=== PATIENT | female | born 2000 | race American Indian/Alaskan Native ===

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

== ENCOUNTER → 2018-01-06 21:52 | Outpatient (CLI) | payer MEDICAID ==
[~2018-01-06 21:52] MED LIST: D5LR 1,000 ML IV SCH
[2018-01-06 22:05] VITALS: BP 129/82
[2018-01-07 00:20] LABS: Amphetamine Screen,Urine PRESUMPTIVE NEGATIVE; Benzodiazepines Screen,Urine PRESUMPTIVE NEGATIVE; Cannabinoid Screen,Urine PRESUMPTIVE NEGATIVE; Cocaine Screen,Urine PRESUMPTIVE NEGATIVE; Methadone Screen,Urine PRESUMPTIVE NEGATIVE; Opiate Screen,Urine PRESUMPTIVE NEGATIVE
== END | disposition home or self-care (01) ==
LOC: TRG 21:52
PROVIDERS: ATTEND Obstetrics & Gynecology
DX: O47.1 False labor at or after 37 completed weeks of gestation (principal); Z3A.39 39 weeks gestation of pregnancy; Z79.899 Other long term (current) drug therapy
CPT/HCPCS: 59025; 80307; J7121

== ENCOUNTER 2018-01-18 10:05 | Inpatient (IN) | payer MEDICAID ==
[2018-01-18] MEDS ORDERED: LACTATED RINGERS 1,000 ML ONE (11:56)
[2018-01-18] MEDS: LACTATED RINGERS 1,000 ML IV SCH ×2 (12:00→17:54)
[2018-01-18] MEDS ORDERED: BRETHINE IVP PRN (12:51)
[2018-01-18] MEDS ORDERED: PHENERGAN PO PRN (12:51)
[2018-01-18] MEDS ORDERED: SUBLIMAZE IV PRN ×2 (12:51→18:06)
[2018-01-18] MEDS ORDERED: MINERAL OIL PO PRN (12:51)
[2018-01-18] MEDS ORDERED: NARCAN 0.4 MG/1 ML IV PRN (12:51)
[2018-01-18] MEDS ORDERED: STADOL IV PRN (12:51)
[2018-01-18] MEDS ORDERED: ePHEDrine SULFATE IV PRN ×2 (12:51→20:15)
[2018-01-18] MEDS ORDERED: ZOFRAN IV PRN ×2 (12:51→20:15)
[2018-01-18] MEDS ORDERED: XYLOCAINE 2% INFILTRATI ONE (12:51)
[2018-01-18] MEDS ORDERED: BRETHINE SUB-Q PRN (12:51)
--- NOTE | 2018-01-18 12:59 | History and Physical Report ---
History of Present Illness Date of examination: 01/18/18 Date of admission: 01/18/18 11:29 Chief complaint: contractions and pain via EMS History of present illness: 17 yo at 41 weeks came in via EMS for contractions noted to be 1 cm. Cat 2 strip and postdates so I decided to keep patient as she has IOL on Sunday. Her OB history includes late care at 14 weeks. Sickle cell trait neg. 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 denies: smoking, alcohol abuse, prescription drug abuse - Obstetrical History Expected Date of Delivery: 01/11/18 Actual Gestation: 41 Week(s) 0 Day(s) : 1 Para: 0 Hx # Term Pregnancies: 0 Number of Pregnancies: 0 Spontaneous Abortions: 1 Induced : 0 Number of Living Children: 0 Medications and Allergies Allergies Allergy/AdvReac Type Severity Reaction Status Date / Time mycin Allergy Mild Rash Uncoded 12/28/17 12:25 Home Medications Medication Instructions Recorded Confirmed Last Taken Type Pnv,Calcium 72/Iron/Folic Acid 1 tab PO DAILY 12/08/17 12/28/17 12/28/17 09:00 History [Pnv Plus Multivit Tab] 1 Active Meds: Active Medications Butorphanol Tartrate (Stadol) 2 mg IV Q2H PRN PRN Reason: Pain , Severe (7-10) Dinoprostone (Cervidil) 10 mg VG ONCE ONE Stop: 01/18/18 12:52 Ephedrine Sulfate (Ephedrine Sulfate) 10 mg IV Q2M PRN PRN Reason: Hypotension Fentanyl (Sublimaze) 100 mcg IV Q2H PRN PRN Reason: Labor Pain Lactated Ringer's (Lactated Ringers) 1,000 mls @ 125 mls/hr IV DIRECT BRISEYDA Oxytocin/Sodium Chloride (Pitocin/Ns 20 Unit/1000ml Drip) 20 units in 1,000 mls @ 125 mls/hr IV DIRECT BRISEYDA Oxytocin/Sodium Chloride (Pitocin/Ns 30 Unit/500ml) 30 units in 500 mls @ 1 mls /hr IV TITR BRISEYDA; 1 MILLIUNITS/MIN PRN Reason: Protocol Lidocaine (Xylocaine 2%) 20 ml INFILTRATI ONCE ONE Stop: 01/18/18 12:52 Mineral Oil (Mineral Oil) 30 ml PO QHS PRN PRN Reason: Constipation Naloxone HCl (Narcan 0.4 Mg/1 Ml) 0.1 mg IV Q2MIN PRN PRN Reason: Res Rate </= 8 or 02 SAT < 92% Ondansetron HCl (Zofran) 4 mg IV Q8H PRN PRN Reason: Nausea And Vomiting Promethazine HCl (Phenergan) 25 mg PO Q6H PRN PRN Reason: Nausea And Vomiting Terbutaline Sulfate (Brethine) 0.25 mg SUB-Q ONCE PRN PRN Reason: Hyperstimulation/Hypertonicity Terbutaline Sulfate (Brethine) 0.25 mg IVP ONCE PRN PRN Reason: Hyperstimulation/Hypertonicity Review of Systems All systems: negative Genitourinary: contractions - Vital Signs Vital signs: Vital Signs Temp Pulse Resp BP 97.9 F 82 16 110/60 01/18/18 10:49 01/18/18 10:49 01/18/18 10:49 01/18/18 10:49 Temp Pulse Resp BP Pulse Ox 98.0 F 59 L 16 134/62 01/18/18 12:26 01/18/18 12:31 01/18/18 12:26 01/18/18 12:31 - Physical Exam Breasts: Positive: normal Cardiovascular: Regular rate, Normal S1 Lungs: Positive: Clear to auscultation, Normal air movement Abdomen: Positive: normal appearance, soft, normal bowel sounds. Negative: distention, tenderness, guarding Genitourinary (Female): Positive: normal external genitalia, normal perenium Vulva: both: normal Vagina: Positive: normal moisture Uterus: Positive: normal size, normal contour Anus/Rectum: Positive: normal perianal skin Extremities: Positive: normal Deep Tendon Reflex Grade: Normal +2 - Obstetrical FHR: category 1 Cervical Dilatation: 1 Uterine Contraction Pattern: Irregular Uterine Tone Measurement Phase: Contraction Uterine Contraction Intensity: Mild Results All other labs normal. Assessment and Plan A/P IUP 41 weeks Post dates ( previously scheduled this coming Sunday) IOL today IVF, labs Expect vaginal delivery
[2018-01-18] MEDS ORDERED: CERVIDIL VG ONE (13:00)
[2018-01-18] MEDS ORDERED: PITOCin/NS 20 UNIT/1000ML DRIP 20 UNITS/1,000 ML BAG IV SCH (13:00)
[2018-01-18 13:23] LABS: Hematocrit 30.8 % (30.3-42.9); Hemoglobin 10.8 gm/dl (10.1-14.3); Mean Corpuscular HGB Conc 35 % (30-34); Mean Corpuscular Hemoglobin 29 pg (28-32); Mean Corpuscular Volume 83 fl (79-97); Platelet Count 177 K/mm3 (140-440); Red Cell Distribution Width 15.2 % (13.2-15.2)
[2018-01-18] MEDS: PITOCin/NS 30 UNIT/500ML 30 UNITS/500 ML BAG IV SCH ×2 (16:59→17:48)
[2018-01-18] MEDS ORDERED: NARCAN 2 MG/2 ML IV PRN (20:15)
--- NOTE | 2018-01-18 20:16 | Anesthesia Consultation ---
Anesthesia Consult and Med Hx Date of service: 01/18/18 - Airway Anesthetic Teeth Evaluation: Good ROM Head & Neck: Adequate Mental/Hyoid Distance: Adequate Mallampati Class: Class II Intubation Access Assessment: Probably Good - Pulmonary Exam CTA: Yes - Cardiac Exam Cardiac Exam: RRR - Pre-Operative Health Status ASA Pre-Surgery Classification: ASA2 Proposed Anesthetic Plan: Epidural - Pulmonary Hx Asthma: No COPD: No Hx Pneumonia: No - Cardiovascular System Hx Hypertension: No - Central Nervous System Hx Seizures: No Hx Psychiatric Problems: No - Endocrine Hx Renal Disease: No Hx End Stage Renal Disease: No Hx Hypothyroidism: No Hx Hyperthyroidism: No - Hematic Hx Anemia: No Hx Sickle Cell Disease: No - Other Systems Hx Alcohol Use: No
[2018-01-18] MEDS ORDERED: fentaNYL-BUPIV 2 MCG/ML-0.125% 200 MCG/100 ML BAG EPIDURAL SCH (21:00)
[2018-01-19] MEDS ORDERED: CYTOTEC ONE (03:03)
--- NOTE | 2018-01-19 03:14 | Procedure Note ---
OB Delivery Note - Delivery Date of Delivery: 01/19/18 Surgeon: NEVILLE CASE Estimated blood loss: other (400ml) - Vaginal Delivery presentation: vertex Delivery position: OA Intrapartum events: none Delivery induction: AROM Delivery augmentation: pitocin Delivery monitor: external FHT, external uterine, internal FHT, internal uterine Route of delivery: Delivery placenta: spontaneous Delivery cord: 3 umbilical vessels Episiotomy: none Delivery laceration: none Anesthesia: epidural Delivery comments: Patient progressed to C/c/+1 and pushed to deliver a liveborn female infant with apgars of 8/9. After delivery of the head, the shoulders delivered and the was bulb suctioned on the perineum. The cord was clamped and cut and was placed on the patient's abdomen. The placenta delivered spontaneously intact with 3VC. The patient experienced uterine atony and was given fundal massage along with placement of 800mcg of cytotec. No lacerations were noted. Weight 8lbs 5oz. EBL 400ml. - Infant A at 1 minute: 8 at 5 minutes: 9 Gender: Female (weight 8lbs 5oz)
[2018-01-19] MEDS ORDERED: PHENERGAN PR PRN (03:15)
[2018-01-19] MEDS ORDERED: DULCOLAX PR PRN (03:15)
[2018-01-19] MEDS ORDERED: NORCO 5/325 PO PRN (03:15)
[2018-01-19] MEDS ORDERED: TUCKS PAD TP PRN (03:15)
[2018-01-19] MEDS ORDERED: LANSINOH TP PRN (03:15)
[2018-01-19] MEDS ORDERED: BENADRYL PO PRN (03:15)
[2018-01-19] MEDS ORDERED: MILK OF MAGNESIA PO PRN (03:15)
[2018-01-19] MEDS ORDERED: PHENERGAN PO PRN (03:15)
[2018-01-19] MEDS ORDERED: ZOFRAN IV PRN (03:15)
[2018-01-19] MEDS ORDERED: TYLENOL PO PRN (03:15)
[2018-01-19] MEDS ORDERED: SODIUM CHLORIDE FLUSH SYRINGE 10 ML IV NR (04:00)
[2018-01-19] MEDS ORDERED: CYTOTEC PR ONE (04:27)
[2018-01-19] MEDS: MOTRIN PO SCH ×3 (06:30→17:58)
[2018-01-19 15:59] LABS: Hemoglobin 9.7 gm/dl (10.1-14.3)
[2018-01-20] MEDS: MOTRIN PO SCH ×4 (00:10→17:55)
--- NOTE | 2018-01-20 12:51 | Progress Note ---
Assessment and Plan - Patient Problems (1) Post-term Current Visit: Yes Status: Acute Plan to address problem: Patient doing well Discharge home Subjective - Subjective Date of service: 01/20/18 Interval history: The patient is experiencing moderate cramping with breast-feeding. She states her lochia is decreasing. She is tolerating a regular diet. Patient reports: appetite normal, voiding normally, pain well controlled : doing well Objective - Vital Signs Latest vital signs: Vital Signs Temp Pulse Resp BP Pulse Ox 01/20/18 10:06 97.6 F 70 18 119/76 100 01/20/18 00:10 20 01/20/18 00:00 98.1 F 85 18 131/71 01/19/18 18:14 97.9 F 60 18 126/72 98 Intake and Output 01/19/18 01/20/18 01/20/18 22:59 06:59 14:59 Intake Total 120 720 120 Output Total 400 Balance -280 720 120 Intake: Oral 120 120 Intake, Free Water 720 Output: Urine 400 Void 400 Other: Total, Intake Amount 120 120 Total, Output Amount 400 # Voids Void 1 3 1 - Exam Uterus: Present: normal, firm - Labs Labs: Abnormal lab results 01/19/18 Range/Units 15:36 Hgb 9.7 L (10.1-14.3) gm/dl Hct 28.0 L (30.3-42.9) %
--- NOTE | 2018-01-20 12:52 | Discharge Summary ---
Providers - Providers Date of Admission: 01/18/18 11:29 Date of discharge: 01/20/18 Attending physician: CARMEN ADKINS MD Primary care physician: SHAINA AMEZQUITA Hospitalization Reason for admission: induction of labor Delivery: complications: none Discharge diagnosis: IUP at term delivered baby: female Hospital course: The patient was admitted for induction of labor secondary to macrosomia suspected and postterm . The patient had a successful vaginal delivery. Her course was unremarkable. Condition at discharge: Good Disposition: DC-01 TO HOME OR SELFCARE - Discharge Diagnoses (1) Post-term Status: Acute Plan - Discharge Medications Prescriptions: HYDROcodone/APAP 5-325 [Snyder 5/325] 1 each PO Q6HR PRN #30 tablet PRN Reason: Pain Ibuprofen [Motrin] 800 mg PO Q8HR PRN #60 tablet PRN Reason: Pain - Provider Discharge Summary Activity: no sex for 6 weeks, no heavy lifting 4 weeks, no strenuous exercise Diet: routine Instructions: routine Additional instructions: [] Smoking cessation referral if applicable(refer to patient education folder for contact #) [] Refer to [facility] Booklet Call your doctor immediately for: * Fever > 100.5 * Heavy vaginal bleeding ( >1 pad per hour) * Severe persistent headache * Shortness of breath * Reddened, hot, painful area to leg or breast * Schedule visit in 4 weeks - Follow up plan
[2018-01-20 15:41] VITALS: BP 113/76
== END 2018-01-20 19:35 | disposition home or self-care (01) | DRG 774 ==
LOC: TRG 10:05 → LD 11:29 → OB 01-19 05:06
PROVIDERS: ADMIT Obstetrics & Gynecology; ATTEND Obstetrics & Gynecology
PROC: 10E0XZZ Delivery of Products of Conception, External Approach (ICD-10-PCS; principal; 2018-01-19)
PROC: 10907ZC Drainage of Amniotic Fluid, Therapeutic from Products of Conception, Via Natural or Artificial Opening (ICD-10-PCS; 2018-01-19)
PROC: 3E0R3BZ Introduction of Anesthetic Agent into Spinal Canal, Percutaneous Approach (ICD-10-PCS; 2018-01-19)
PROC: 00HU33Z Insertion of Infusion Device into Spinal Canal, Percutaneous Approach (ICD-10-PCS; 2018-01-19)
DX: O48.0 Post-term pregnancy (principal); O98.32 Other infections with a predominantly sexual mode of transmission complicating childbirth; O62.2 Other uterine inertia; O36.63X0 Maternal care for excessive fetal growth, third trimester, not applicable or unspecified; Z37.0 Single live birth; Z3A.41 41 weeks gestation of pregnancy; Z88.1 Allergy status to other antibiotic agents; A60.00 Herpesviral infection of urogenital system, unspecified
CPT/HCPCS: 36415; 59025; 85014; 85018; 85027; 86592; 86850; 86900; 86901; J2590; J3010; J7120

== ENCOUNTER 2018-03-12 05:06 | Emergency (ER) | payer MEDICAID ==
[2018-03-12] MEDS ORDERED: ZOFRAN IV ONE ×3 (05:34→07:27)
[2018-03-12] MEDS ORDERED: MORPHINE IV ONE (05:34)
[2018-03-12 06:00] LABS: Basophils % (Auto) 0.3 % (0.0-1.8); Eosinophils # (Auto) 0.1 K/mm3 (0.0-0.4); Eosinophils % (Auto) 0.6 % (0.0-4.3); Hematocrit 33.4 % (30.3-42.9); Hemoglobin 11.2 gm/dl (10.1-14.3); Lymphocytes # (Auto) 1.4 K/mm3 (1.2-5.4); Lymphocytes % (Auto) 15.3 % (13.4-35.0); Mean Corpuscular HGB Conc 33 % (30-34); Mean Corpuscular Volume 78 fl (79-97); Monocytes # (Auto) 0.4 K/mm3 (0.0-0.8); Monocytes % (Auto) 4.2 % (0.0-7.3); Platelet Count 258 K/mm3 (140-440); Red Blood Count 4.31 M/mm3 (3.65-5.03); Red Cell Distribution Width 15.1 % (13.2-15.2)
[2018-03-12 06:02] LABS: Mean Corpuscular Hemoglobin 26 pg (28-32)
[2018-03-12 06:25] LABS: Alanine Aminotransferase 77 units/L (7-56); Albumin 4.5 g/dL (3.9-5); BUN/Creatinine Ratio 24; Blood Urea Nitrogen 19 mg/dL (7-17); Calcium 9.5 mg/dL (8.4-10.2); Hemolysis Index 3
[2018-03-12] MEDS ORDERED: SUBLIMAZE IV NR (07:26)
[2018-03-12] MEDS ORDERED: NACL 0.9% 1000 ML 1,000 ML IV ONE (07:27)
--- NOTE | 2018-03-12 07:31 | Emergency Department Report ---
ED Abdominal Pain HPI - General Chief Complaint: Abdominal Pain Stated Complaint: ABD PAIN Time Seen by Provider: 03/12/18 07:23 Source: patient, EMS Mode of arrival: Stretcher Limitations: No Limitations - History of Present Illness Initial Comments: Patient is 17 years old female with no significant past medical history. She just had a normal vaginal delivery 2 months ago. Patient presented to the ER complaining of sudden onset of right upper quadrant abdominal pain around 3 AM this morning. Patient stated that pain does not radiate. Associated with nausea but no vomiting. No diarrhea. MD Complaint: abdominal pain -: Sudden Location: RUQ Radiation: none Migration to: no migration Severity scale (0 -10): 4 Quality: stabbing Consistency: constant Worsens With: nothing - Related Data Home Medications Medication Instructions Recorded Confirmed Last Taken Pnv,Calcium 72/Iron/Folic Acid 1 tab PO DAILY 12/08/17 01/19/18 12/28/17 09:00 [Pnv Plus Multivit Tab] 1 Previous Rx's Medication Instructions Recorded Last Taken Type HYDROcodone/APAP 5-325 [[place] 1 each PO Q6HR PRN #30 tablet 01/20/18 Unknown Rx 5/325] Ibuprofen [Motrin] 800 mg PO Q8HR PRN #60 tablet 01/20/18 Unknown Rx Allergies Allergy/AdvReac Type Severity Reaction Status Date / Time mycin Allergy Mild Rash Uncoded 12/28/17 12:25 ED Review of Systems ROS: Stated complaint: ABD PAIN Other details as noted in HPI Comment: All other systems reviewed and negative Constitutional: denies: chills, fever Respiratory: denies: cough, orthopnea, shortness of breath, SOB with exertion Cardiovascular: denies: chest pain, palpitations, dyspnea on exertion, orthopnea , edema Gastrointestinal: abdominal pain, nausea. denies: vomiting, diarrhea, constipation, hematemesis, melena, hematochezia Genitourinary: denies: urgency, dysuria, frequency, hematuria Musculoskeletal: denies: back pain Neurological: denies: headache, weakness, numbness, paresthesias, confusion, abnormal gait, vertigo ED Past Medical Hx - Past Medical History Previous Medical History?: No Hx Hypertension: No Hx Congestive Heart Failure: No Hx Diabetes: No Hx Deep Vein Thrombosis: No Hx Renal Disease: No Hx Sickle Cell Disease: No Hx Seizures: No Hx Asthma: No Hx COPD: No Hx HIV: No - Surgical History Past Surgical History?: No - Social History Smoking Status: Never Smoker Substance Use Type: None - Medications Home Medications: Home Medications Medication Instructions Recorded Confirmed Last Taken Type Pnv,Calcium 72/Iron/Folic Acid 1 tab PO DAILY 12/08/17 01/19/18 12/28/17 09:00 History [Pnv Plus Multivit Tab] 1 HYDROcodone/APAP 5-325 [[place] 1 each PO Q6HR PRN #30 tablet 01/20/18 Unknown Rx 5/325] Ibuprofen [Motrin] 800 mg PO Q8HR PRN #60 tablet 01/20/18 Unknown Rx ED Physical Exam - General Limitations: No Limitations General appearance: alert, in distress (secondary to pain) - Head Head exam: Present: atraumatic, normocephalic, normal inspection - Eye Eye exam: Present: normal appearance, PERRL - ENT ENT exam: Present: normal exam, normal orophraynx, mucous membranes moist - Neck Neck exam: Present: normal inspection, full ROM. Absent: tenderness, meningismus, lymphadenopathy - Respiratory Respiratory exam: Present: normal lung sounds bilaterally. Absent: respiratory distress, wheezes, rales, rhonchi - Cardiovascular Cardiovascular Exam: Present: regular rate, normal rhythm, normal heart sounds - GI/Abdominal GI/Abdominal exam: Present: soft, tenderness (right upper quadrant tenderness, positive Hirsch sign), normal bowel sounds. Absent: distended, guarding, rebound, rigid, organomegaly, mass, bruit, pulsatile mass, hernia - Extremities Exam Extremities exam: Present: normal inspection, full ROM, normal capillary refill - Back Exam Back exam: Present: normal inspection, full ROM. Absent: tenderness, CVA tenderness (R), CVA tenderness (L) - Neurological Exam Neurological exam: Present: alert, oriented X3, CN II-XII intact, normal gait - Skin Skin exam: Present: warm, intact, normal color ED Course Vital Signs 03/12/18 03/12/18 03/12/18 05:14 05:15 05:24 Temperature 98.7 F Pulse Rate 100 H 110 H 94 H Respiratory 13 12 20 Rate Blood Pressure 134/83 134/83 O2 Sat by Pulse 98 96 98 Oximetry 03/12/18 03/12/18 03/12/18 05:30 05:45 06:00 Temperature Pulse Rate 82 85 87 Respiratory 15 14 16 Rate Blood Pressure 113/72 115/86 108/72 O2 Sat by Pulse 97 96 98 Oximetry 03/12/18 03/12/18 03/12/18 06:15 06:30 06:45 Temperature Pulse Rate 76 77 81 Respiratory 15 17 20 Rate Blood Pressure 123/55 123/76 128/70 O2 Sat by Pulse 97 98 98 Oximetry 03/12/18 03/12/18 03/12/18 07:00 08:07 08:15 Temperature Pulse Rate 72 80 79 Respiratory 15 19 13 Rate Blood Pressure 109/57 116/82 116/75 O2 Sat by Pulse 98 99 Oximetry 03/12/18 03/12/18 03/12/18 08:29 08:30 08:45 Temperature Pulse Rate 61 55 L Respiratory 16 21 18 Rate Blood Pressure 116/75 110/56 112/62 O2 Sat by Pulse 97 98 Oximetry 03/12/18 03/12/18 03/12/18 09:01 09:15 09:30 Temperature Pulse Rate 53 L 54 L 53 L Respiratory 12 17 10 L Rate Blood Pressure 111/61 118/62 116/69 O2 Sat by Pulse 100 96 98 Oximetry 03/12/18 03/12/18 03/12/18 09:45 10:00 10:15 Temperature Pulse Rate 62 60 61 Respiratory 14 12 21 Rate Blood Pressure 115/65 120/74 120/72 O2 Sat by Pulse 98 100 100 Oximetry 03/12/18 10:30 Temperature Pulse Rate 67 Respiratory 10 L Rate Blood Pressure 119/75 O2 Sat by Pulse 100 Oximetry - Reevaluation(s) Reevaluation #1: 03/12/18 11:10 Patient stated that she is feeling much better. I informed mom about her ultrasound and the need to follow-up with her primary care physician and I gave her Dr. Finch to follow-up. ED Medical Decision Making - Lab Data Result diagrams: 03/12/18 05:49 03/12/18 05:49 Critical care attestation.: If time is entered above; I have spent that time in minutes in the direct care of this critically ill patient, excluding procedure time. ED Disposition Clinical Impression: Abdominal pain, Biliary colic Disposition: DC-01 TO HOME OR SELFCARE Is pt being admited?: No Condition: Stable Instructions: Biliary Colic (ED), Abdominal Pain (ED) Referrals: JUNAID FINCH MD [Staff Physician] - 3-5 Days
[2018-03-12] MEDS ORDERED: SUBLIMAZE ONE (07:33)
--- NOTE | 2018-03-12 08:20 | Ultrasound Report ---
ULTRASOUND ABDOMEN LIMITED: TECHNIQUE: Transabdominal ultrasound with color Doppler interrogation. HISTORY: right upper quadrant abdominal pain. COMPARISON: 04/09/17. FINDINGS: LIVER: Normal. BILIARY SYSTEM: Trace sludge and a few shadowing gallstones are identified which are new since the previous exam. There is no evidence for abnormal dilatation, gallbladder wall thickening or pericholecystic fluid. The CBD measures 3 mm. PANCREAS: Normal. RIGHT KIDNEY: Normal. PROXIMAL AORTA: Normal. ASCITES: None. IMPRESSION: Cholelithiasis. No secondary findings of acute cholecystitis are appreciated.
[2018-03-12 10:51] VITALS: BP 119/75
[2018-03-12] MEDS ORDERED: TORADOL IV ONE (11:10)
[2018-03-12 11:33] LABS: Bilirubin,Urine NEG (Negative); Blood,Urine LG (Negative); Color,Urine Yellow (Yellow); Protein,Urine <15 mg/dL mg/dL (Negative)
== END 2018-03-12 11:37 | disposition home or self-care (01) ==
LOC: ED 05:06
DX: K80.50 Calculus of bile duct without cholangitis or cholecystitis without obstruction (principal); Z88.1 Allergy status to other antibiotic agents
CPT/HCPCS: 36415; 76705; 80053; 81001; 84703; 85025; 96361; 96374; 96375; 96376; 99284; J2270; J2405; J3010; J7030

== ENCOUNTER 2018-07-14 12:21 | Inpatient (IN) | payer SELFPAY ==
[2018-07-14 12:57] LABS: Bilirubin,Urine NEG (Negative); Blood,Urine NEG (Negative); Color,Urine Straw (Yellow); Mucus,Urine FEW /HPF; Protein,Urine <15 mg/dL mg/dL (Negative); Urobilinogen,Urine < 2.0 mg/dL (<2.0)
[2018-07-14 13:08] LABS: HCG Qualitative,Urine Negative (Negative)
--- NOTE | 2018-07-14 13:36 | Emergency Department Report ---
ED Abdominal Pain HPI - General Chief Complaint: Abdominal Pain Stated Complaint: LOWER ADB PAIN AND BACK PAIN Time Seen by Provider: 07/14/18 13:23 Source: patient Mode of arrival: Ambulatory Limitations: No Limitations - History of Present Illness Initial Comments: This is a 18-year-old -[place] female who presents with lower abdominal pain and low back pain for 4 days. Patient states she has a history of gallstones. Patient states she is feeling nauseous with migraines with abdominal pain. Patient describes pain as similar to elinor alamo. Pain is dull and achy. Patient states when cramps he is short requiring her to get in a position. Pain is radiating to bilateral flanks. Patient's last menstrual period was 01/20/2018, A0. Patient denies taking control pills at this time. Patient states she took a test at home which was negative. She is concerned gallstones are flared. Patient denies chest pain, fever, frequency, urgency, dysuria, vaginal discharge or bleeding. MD Complaint: abdominal pain Onset/Timin -: days(s) Location: LLQ, RLQ Radiation: bilateral flank Migration to: bilateral flank Severity: severe Severity scale (0 -10): 9 Quality: cramping, sharp Consistency: intermittent Improves With: nothing Worsens With: nothing Associated Symptoms: nausea, vomiting. denies: diarrhea, fever, chills, constipation, dysuria, hematemesis, hematochezia, melena, hematuria, anorexia, syncope - Related Data LMP Date: 01/22/18 Home Medications Medication Instructions Recorded Confirmed Last Taken Pnv,Calcium 72/Iron/Folic Acid 1 tab PO DAILY 12/08/17 01/19/18 12/28/17 09:00 [Pnv Plus Multivit Tab] 1 Previous Rx's Medication Instructions Recorded Last Taken Type HYDROcodone/APAP 5-325 [[place] 1 each PO Q6HR PRN #30 tablet 01/20/18 Unknown Rx 5/325] Ibuprofen [Motrin] 800 mg PO Q8HR PRN #60 tablet 01/20/18 Unknown Rx Ondansetron [Zofran Odt] 4 mg PO Q8HR PRN #14 tab.rapdis 03/12/18 Unknown Rx traMADol [Ultram 50 MG tab] 50 mg PO Q4HR PRN #14 tablet 03/12/18 Unknown Rx Allergies Allergy/AdvReac Type Severity Reaction Status Date / Time mycin Allergy Mild Rash Uncoded 07/14/18 12:29 ED Review of Systems ROS: Stated complaint: LOWER ADB PAIN AND BACK PAIN Other details as noted in HPI Constitutional: denies: chills, fever Respiratory: denies: cough, shortness of breath, wheezing Cardiovascular: denies: chest pain, palpitations Gastrointestinal: abdominal pain, nausea, vomiting. denies: diarrhea, constipation, hematemesis, melena, hematochezia Genitourinary: denies: urgency, dysuria, frequency, discharge Musculoskeletal: back pain (bilateral flanks). denies: joint swelling, arthralgia Skin: denies: rash, lesions Neurological: headache. denies: weakness, numbness, paresthesias Psychiatric: denies: anxiety, depression ED Past Medical Hx - Past Medical History Hx Hypertension: No Hx Congestive Heart Failure: No Hx Diabetes: No Hx Deep Vein Thrombosis: No Hx Renal Disease: No Hx Sickle Cell Disease: No Hx Seizures: No Hx Asthma: No Hx COPD: No Hx HIV: No - Social History Smoking Status: Never Smoker Substance Use Type: None - Medications Home Medications: Home Medications Medication Instructions Recorded Confirmed Last Taken Type Pnv,Calcium 72/Iron/Folic Acid 1 tab PO DAILY 12/08/17 01/19/18 12/28/17 09:00 History [Pnv Plus Multivit Tab] 1 HYDROcodone/APAP 5-325 [[place] 1 each PO Q6HR PRN #30 tablet 01/20/18 Unknown Rx 5/325] Ibuprofen [Motrin] 800 mg PO Q8HR PRN #60 tablet 01/20/18 Unknown Rx Ondansetron [Zofran Odt] 4 mg PO Q8HR PRN #14 tab.rapdis 03/12/18 Unknown Rx traMADol [Ultram 50 MG tab] 50 mg PO Q4HR PRN #14 tablet 03/12/18 Unknown Rx ED Physical Exam - General Limitations: No Limitations General appearance: alert, in no apparent distress, obese - Respiratory Respiratory exam: Present: normal lung sounds bilaterally. Absent: respiratory distress - Cardiovascular Cardiovascular Exam: Present: regular rate, normal rhythm. Absent: systolic murmur, diastolic murmur, rubs, gallop - GI/Abdominal GI/Abdominal exam: Present: soft, tenderness (left lower quadrant ), normal bowel sounds. Absent: guarding, rebound, rigid, organomegaly, mass - Back Exam Back exam: Present: full ROM, CVA tenderness (R). Absent: CVA tenderness (L), muscle spasm, paraspinal tenderness, vertebral tenderness, rash noted - Neurological Exam Neurological exam: Present: alert, oriented X3, normal gait - Psychiatric Psychiatric exam: Present: normal affect, normal mood - Skin Skin exam: Present: warm, dry, intact, normal color. Absent: rash ED Course Vital Signs 07/14/18 12:29 Temperature 98.3 F Pulse Rate 90 Respiratory 18 Rate Blood Pressure 125/64 O2 Sat by Pulse 98 Oximetry ED Medical Decision Making - Lab Data Result diagrams: 07/14/18 13:59 07/14/18 13:59 - Radiology Data Radiology results: report reviewed, image reviewed FINAL REPORT EXAM: CT ABDOMEN PELVIS W CON HISTORY: LLQ tenderness TECHNIQUE: Standard enhanced CT of the abdomen and pelvis. Coronal and sagittal reconstruction was also performed. Delayed imaging through the kidneys and bladder was obtained. Contrast: 100 mL Omnipaque 300 given IV. PRIORS: None. FINDINGS: The appendix is dilated measuring 11 mm in diameter (axial image 129) and is filled with fluid. However, no wall thickening is seen and no surrounding inflammation is noted. The appendix drapes directly over the right ovary. The size the appendix can be is associated with acute appendicitis although there are no secondary findings to support that diagnosis. Within the abdomen, the liver, spleen, pancreas, gallbladder, adrenal glands, and kidneys are unremarkable. No evidence for retroperitoneal or pelvic lymphadenopathy is seen. The bowel loops have normal caliber. No soft tissue mass, fluid collection, inflammatory change, or free air is seen within the abdomen or pelvis. Within the pelvis, the bladder is unremarkable. The uterus is mildly enlarged. No evidence for mass or lymphadenopathy is seen in the pelvis. There is a 2.8 x 1.8 cm low-density cyst in the right ovary. Images through the upper abdomen include the lung bases which are expanded and clear. Bony structures show no focal abnormalities and are intact. IMPRESSION: 1. Appendix is dilated and filled with fluid without wall thickening or surrounding inflammation. By diameter measurements, this is consistent with acute appendicitis although no secondary findings are noted to support the diagnosis 2. Uterus is mildly enlarged 3. Right ovarian cyst - Medical Decision Making Patient is stable and was examined by me. Vitals stable. Obtained labs. All unremarkable. Physical findings of tenderness when left lower quadrant. Obtain CT of abdomen and pelvis. Consulted with Dr. Morse who is the attending and Dr. Kim from surgery who decided to admit. Patient will be admitted to surgery for early appendicitis. Critical care attestation.: If time is entered above; I have spent that time in minutes in the direct care of this critically ill patient, excluding procedure time. ED Disposition Clinical Impression: Nausea and vomiting in adult Appendicitis Qualifiers: Appendicitis type: acute appendicitis Acute appendicitis type: unspecified acute appendicitis type Qualified Code(s): K35.80 - Unspecified acute appendicitis Disposition: - TO HOME OR SELFCARE Is pt being admited?: Yes Does the pt Need Aspirin: No Condition: Stable Referrals: PRIMARY CARE, [Primary Care Provider] - 3-5 Days
[2018-07-14 14:11] LABS: Basophils % (Auto) 0.4 % (0.0-1.8); Eosinophils # (Auto) 0.1 K/mm3 (0.0-0.4); Eosinophils % (Auto) 1.3 % (0.0-4.3); Hematocrit 37.6 % (30.3-42.9); Hemoglobin 12.2 gm/dl (10.1-14.3); Lymphocytes # (Auto) 2.1 K/mm3 (1.2-5.4); Lymphocytes % (Auto) 29.4 % (13.4-35.0); Mean Corpuscular HGB Conc 33 % (30-34); Mean Corpuscular Volume 75 fl (79-97); Monocytes # (Auto) 0.3 K/mm3 (0.0-0.8); Monocytes % (Auto) 4.7 % (0.0-7.3); Platelet Count 294 K/mm3 (140-440); Red Blood Count 5.02 M/mm3 (3.65-5.03); Red Cell Distribution Width 16.8 % (13.2-15.2)
[2018-07-14 14:15] LABS: Mean Corpuscular Hemoglobin 24 pg (28-32)
[2018-07-14 14:24] LABS: Alanine Aminotransferase 20 units/L (7-56); Albumin 4.9 g/dL (3.9-5); BUN/Creatinine Ratio 18; Blood Urea Nitrogen 11 mg/dL (7-17); Calcium 9.7 mg/dL (8.4-10.2); Hemolysis Index 0; Lipase 37 units/L (13-60)
[2018-07-14] MEDS ORDERED: NACL 0.9% 1000 ML 1,000 ML ONE (16:25)
--- NOTE | 2018-07-14 17:40 | Cat Scan Report ---
FINAL REPORT EXAM: CT ABDOMEN PELVIS W CON HISTORY: LLQ tenderness TECHNIQUE: Standard enhanced CT of the abdomen and pelvis. Coronal and sagittal reconstruction was also performed. Delayed imaging through the kidneys and bladder was obtained. Contrast: 100 mL Omnipaque 300 given IV. PRIORS: None. FINDINGS: The appendix is dilated measuring 11 mm in diameter (axial image 129) and is filled with fluid. However, no wall thickening is seen and no surrounding inflammation is noted. The appendix drapes directly over the right ovary. The size the appendix can be is associated with acute appendicitis although there are no secondary findings to support that diagnosis. Within the abdomen, the liver, spleen, pancreas, gallbladder, adrenal glands, and kidneys are unremarkable. No evidence for retroperitoneal or pelvic lymphadenopathy is seen. The bowel loops have normal caliber. No soft tissue mass, fluid collection, inflammatory change, or free air is seen within the abdomen or pelvis. Within the pelvis, the bladder is unremarkable. The uterus is mildly enlarged. No evidence for mass or lymphadenopathy is seen in the pelvis. There is a 2.8 x 1.8 cm low-density cyst in the right ovary. Images through the upper abdomen include the lung bases which are expanded and clear. Bony structures show no focal abnormalities and are intact. IMPRESSION: 1. Appendix is dilated and filled with fluid without wall thickening or surrounding inflammation. By diameter measurements, this is consistent with acute appendicitis although no secondary findings are noted to support the diagnosis 2. Uterus is mildly enlarged 3. Right ovarian cyst
[2018-07-14] MEDS ORDERED: NACL 0.9% 1000 ML 1,000 ML IV SCH (18:00)
[2018-07-14] MEDS: ROCEPHIN/NS 1 GM/50 ML 1 GM/50 ML BAG IV SCH (18:43)
[2018-07-14] MEDS ORDERED: ZOFRAN IV PRN (20:29)
[2018-07-14] MEDS ORDERED: MORPHINE IV ONE (21:00)
[2018-07-14 21:22] LABS: HCG Qualitative,Urine Negative (Negative)
--- NOTE | 2018-07-15 00:17 | Consultation ---
HISTORY OF PRESENT ILLNESS: This patient is a 18-year-old white female who had a baby about 9 months ago for which she did well. She had no period in the last 3 months now. She developed some pain to the right lower quadrant with nausea and vomiting of about 1 week duration. She was seen in the ER and her CBC was essentially nonrevealing. Her CT scan showed evidence of ? appendicitis, the appendix about 11 mm. There is no evidence of any collection there. She has never been to hospital for any other reason. ALLERGIES: She is not allergic to any medication. PHYSICAL EXAMINATION: GENERAL: A well-preserved moderately obese white female. She is in no distress. She is little bit apprehensive. HEAD: Negative. NECK: Supple. CHEST: Essentially clear. HEART: Sound normal to me. ABDOMEN: Protuberant, soft, benign; however, moderately severe tenderness in the right lower quadrant area. EXTREMITIES: Showed no evidence of any edema. IMPRESSION AND PLAN: Right lower quadrant pain with evidence of ? widened appendix. No periappendiceal abscess or no periappendiceal fluid collection. I fixed this. It was addressed by IV fluids, n.p.o. with IV antibiotic, I would like to have Gynecology involved in the case to see if there is any gynecological problem there. I did indicate to the patient and her family that if Gynecology see her ____ to do how with the scope tomorrow under general anesthesia to take her appendix out ____ abnormal and/or may not reach a specific diagnosis although. I am leaving a message for her to see the patient. JOB# [id number]
[2018-07-15 04:46] LABS: Basophils # (Auto) 0.1 K/mm3 (0.0-0.1); Basophils % (Auto) 1.1 % (0.0-1.8); Eosinophils # (Auto) 0.1 K/mm3 (0.0-0.4); Eosinophils % (Auto) 0.7 % (0.0-4.3); Hematocrit 33.1 % (30.3-42.9); Lymphocytes # (Auto) 2.1 K/mm3 (1.2-5.4); Lymphocytes % (Auto) 29.6 % (13.4-35.0); Mean Corpuscular HGB Conc 33 % (30-34); Mean Corpuscular Volume 75 fl (79-97); Monocytes # (Auto) 0.4 K/mm3 (0.0-0.8); Platelet Count 268 K/mm3 (140-440); Red Blood Count 4.43 M/mm3 (3.65-5.03)
[2018-07-15] MEDS: ROCEPHIN/NS 1 GM/50 ML 1 GM/50 ML BAG IV SCH ×2 (04:54→05:29)
[2018-07-15] MEDS: NACL 0.9% 1000 ML 1,000 ML IV SCH ×2 (04:56→12:55)
[2018-07-15] MEDS: MORPHINE IV PRN ×3 (04:58→21:15)
[2018-07-15 05:00] LABS: Mean Corpuscular Hemoglobin 25 pg (28-32)
[2018-07-15 05:06] LABS: BUN/Creatinine Ratio 15; Blood Urea Nitrogen 9 mg/dL (7-17); Calcium 8.5 mg/dL (8.4-10.2); Hemolysis Index 1
--- NOTE | 2018-07-15 09:10 | History and Physical Report ---
History of Present Illness Date of examination: 07/15/18 Date of admission: 07/14/18 17:58 Chief complaint: abdominal pain for 3 weeks History of present illness: This is a 18 yo LMP February. patient states periods irregular on control. Patient seen in Er for 3 weeks of pain that got worse and came to Er> She is a patient of [facility] but has not been seen in over 5-6 months. Patient was worked up in ER and noticed to have a appendicitis with questionable enlarge mildly uterus with questionable ovarian cyst. She states that she has been nauseated and vomiting with abdominal pain Past History Past Medical History: no pertinent history Past Surgical History: no surgical history Family/Genetic History: none Social history: single. denies: smoking, alcohol abuse, prescription drug abuse - Obstetrical History : 1 Medications and Allergies Allergies Allergy/AdvReac Type Severity Reaction Status Date / Time mycin Allergy Mild Rash Uncoded 07/14/18 12:29 Home Medications Medication Instructions Recorded Confirmed Last Taken Type Pnv,Calcium 72/Iron/Folic Acid 1 tab PO DAILY 12/08/17 01/19/18 12/28/17 09:00 History [Pnv Plus Multivit Tab] 1 HYDROcodone/APAP 5-325 [[place] 1 each PO Q6HR PRN #30 tablet 01/20/18 Unknown Rx 5/325] Ibuprofen [Motrin] 800 mg PO Q8HR PRN #60 tablet 01/20/18 Unknown Rx Ondansetron [Zofran Odt] 4 mg PO Q8HR PRN #14 tab.rapdis 03/12/18 Unknown Rx traMADol [Ultram 50 MG tab] 50 mg PO Q4HR PRN #14 tablet 03/12/18 Unknown Rx Active Meds: Active Medications Ceftriaxone Sodium (Rocephin/Ns 1 Gm/50 Ml) 1 gm in 50 mls @ 100 mls/hr IV Q6HR BRISEYDA; Protocol Last Admin: 07/15/18 05:29 Dose: 100 mls/hr Sodium Chloride (Nacl 0.9% 1000 Ml) 1,000 mls @ 25 mls/hr IV DIRECT BRISEYDA Last Admin: 07/14/18 21:33 Dose: 25 mls/hr Sodium Chloride (Nacl 0.9% 1000 Ml) 1,000 mls @ 125 mls/hr IV DIRECT BRISEYDA Last Admin: 07/15/18 04:56 Dose: 125 mls/hr Morphine Sulfate (Morphine) 2 mg IV Q4H PRN PRN Reason: Pain, Moderate (4-6) Last Admin: 07/15/18 04:58 Dose: 2 mg Ondansetron HCl (Zofran) 4 mg IV Q6H PRN PRN Reason: Nausea/Vomiting Last Admin: 07/14/18 21:34 Dose: 4 mg Review of Systems Gastrointestinal: abdominal pain, nausea, vomiting - Vital Signs Vital signs: Vital Signs Temp Pulse Resp BP Pulse Ox 98.3 F 90 18 125/64 98 07/14/18 12:29 07/14/18 12:29 07/14/18 12:29 07/14/18 12:29 07/14/18 12:29 Temp Pulse Resp BP Pulse Ox 98.1 F 71 16 101/56 99 07/15/18 04:20 07/15/18 04:20 07/15/18 04:20 07/15/18 04:20 07/15/18 04:20 - Physical Exam Breasts: Positive: normal Cardiovascular: Regular rate, Normal S1 Lungs: Positive: Clear to auscultation, Normal air movement Abdomen: Positive: normal appearance, soft, normal bowel sounds. Negative: distention, tenderness, guarding Genitourinary (Female): Positive: normal external genitalia, normal perenium Extremities: Positive: normal Deep Tendon Reflex Grade: Normal +2 Results Result Diagrams: 07/15/18 04:14 07/15/18 04:14 Abnormal lab results 07/14/18 07/14/18 07/15/18 Range/Units 13:59 13:59 04:14 MCV 75 L 75 L (79-97) fl MCH 24 L 25 L (28-32) pg RDW 16.8 H 17.0 H (13.2-15.2) % Carbon Dioxide (22-30) mmol/L Creatinine 0.6 L (0.7-1.2) mg/dL 07/15/18 Range/Units 04:14 MCV (79-97) fl MCH (28-32) pg RDW (13.2-15.2) % Carbon Dioxide 21 L (22-30) mmol/L Creatinine 0.6 L (0.7-1.2) mg/dL All other labs normal. Ultrasound: pending CT scan - abdomen: report reviewed Assessment and Plan A/P HD#1 abdominal pain with suspected appendicitis US to further evaluate uterus and right ovary -stat UPT neg ( amenorrhea possible due to ocps intake) agree with plan for appendicitis await stat US to assses for other causes of pain to be addressed if needed will follow up with Dr. Kim
--- NOTE | 2018-07-15 12:34 | Ultrasound Report ---
ULTRASOUND PELVIC COMPLETE ULTRASOUND TRANSVAGINAL HISTORY: Abdominal pain. COMPARISON: Correlation is made with the CT of abdomen and pelvis with contrast performed 07/14/18. TECHNIQUE: Transabdominal and transvaginal ultrasound with color doppler interrogation. FINDINGS: Uterus: The uterus is anteverted. The uterus is normal size on ultrasound measuring 7.7 x 3.6 x 5.0 cm. No uterine mass. Normal cervix. Endometrium: 4 mm. Right ovary: 4.2 x 2.0 x 2.4 cm. A 2.6 cm simple cyst is identified in the right ovary. Left ovary: 3.0 x 2.0 x 2.0 cm. No focal abnormality. No pelvic fluid or mass is identified. Normal color doppler interrogation. IMPRESSION: 2.6 cm right ovarian cyst. Normal uterus and left ovary.
[2018-07-15] MEDS ORDERED: DILAUDID IV PRN (12:48)
[2018-07-15] MEDS ORDERED: DILAUDID IV ONE (12:59)
[2018-07-15] MEDS ORDERED: VERSED IV NR (13:00)
[2018-07-15] MEDS ORDERED: TRANSDERM-SCOP TD NR (13:00)
--- NOTE | 2018-07-15 13:02 | Anesthesia Day of Surgery ---
Anesthesia Day of Surgery - Day of Surgery Patient Examined: Yes Patient H&P Reviewed: Yes Patient is NPO: Yes
--- NOTE | 2018-07-15 13:06 | Anesthesia Consultation ---
Anesthesia Consult and Med Hx Date of service: 07/15/18 - Airway Anesthetic Teeth Evaluation: Good ROM Head & Neck: Adequate Mental/Hyoid Distance: Adequate Mallampati Class: Class III Intubation Access Assessment: Possibly Difficult - Pulmonary Exam CTA: Yes - Cardiac Exam Cardiac Exam: RRR - Pre-Operative Health Status ASA Pre-Surgery Classification: ASA2 Proposed Anesthetic Plan: General - Pulmonary Hx Smoking: No Hx Asthma: No Hx Respiratory Symptoms: No COPD: No - Cardiovascular System Hx Hypertension: No - Central Nervous System Hx Seizures: No CVA: No - Gastrointestinal Hx Gastroesophageal Reflux Disease: No - Endocrine Hx Renal Disease: No Hx Insulin Dependent Diabetes: No Hx Non-Insulin Dependent Diabetes: No Hx Thyroid Disease: No - Hematic Hx Anemia: No Hx Sickle Cell Disease: No - Other Systems Hx Alcohol Use: No - Additional Comments Anesthesia Medical History Comments: Previously healthy abdominal pain, nausea, vomiting presenting for lap appendectomy. No prior anesthetics but no FHx anesthetic complications. No episodes of vomiting today.
[2018-07-15] MEDS ORDERED: SUBLIMAZE ONE ×2 (13:09→15:09)
[2018-07-15] MEDS ORDERED: ZEMURON IV ONE (13:09)
[2018-07-15] MEDS ORDERED: ZOFRAN ONE (13:09)
[2018-07-15] MEDS ORDERED: DIPRIVAN 10 MG/ML IV ONE (13:10)
[2018-07-15] MEDS ORDERED: MARCAINE 0.5% 0 ML INFILTRATI ONE (14:05)
[2018-07-15] MEDS ORDERED: XYLOCAINE MPF 2% ONE (14:06)
[2018-07-15] MEDS ORDERED: NACL 0.9% IR ONE (14:39)
[2018-07-15] MEDS ORDERED: ROBINUL ONE (14:49)
[2018-07-15] MEDS ORDERED: TORADOL ONE (14:49)
[2018-07-15] MEDS ORDERED: BLOXIVERZ ONE (14:49)
--- NOTE | 2018-07-15 16:28 | Post Anesthesia Evaluation ---
- Post Anesthesia Evaluation Patient Participated: Yes Airway Patent: Yes Stable Respiratory Function: Yes Nausea/Vomiting: No Temp > 96.8F: Yes Pain Manageable: Yes Adequeate Hydration: Yes Anesthesia Complications: No Block Receding Appropriately: Not Applicable
--- NOTE | 2018-07-15 19:49 | Operative Report ---
PREOPERATIVE DIAGNOSIS: Appendicitis. POSTOPERATIVE DIAGNOSES: 1. Appendicitis, pending final pathology report. 2. Right ovarian cyst. ANESTHESIA: General. BLOOD LOSS: Minimal. SURGERY: Laparoscopic appendectomy and laparoscopic aspiration of right ovarian cyst. 3x3 cm. I was able to withdraw about 2 mL out of it. This was sent for cytology. The appendix was moderately inflamed. There was no evidence of any acute inflammation and there is no perforation. DESCRIPTION OF PROCEDURE: With the patient in supine position, after cleansing and draping in usual fashion, I made an infraumbilical incision deep subcutaneous tissue all the way down to the fascia, which was incised. Then, between 2 stay sutures, I was able to introduce the #10 trocar. With a #10 camera, I was able to see the entire area. The appendix was sitting in the front and it was bent inferiorly. It showed some inflammation, but there was no gross inflammation. There was no pus. There was no perforation, so I got hold of the appendix from its base. Using the Endo-BRUNO, it was transected in the usual fashion. Bleeding was seen in the area of the mesoappendix. This was handled with use of a coagulocautery. Once we were satisfied, the area was then irrigated with sterile normal saline. I could see a right ovarian cyst. I took picture of this, I was able to aspirate about 2 mL out of it. There was no blood in it. This was sent for pathology and cytology. At that point, after irrigating the area really well, I was able to spray some [place]. We have excellent hemostasis. Then, all the trocars were removed one by one, sustained no bleeding from the insertion sites. The fascia was then closed with use of 0 Vicryl in usual fashion continuously and the skin with 4-0 Vicryl and the bandage. The patient was then transferred to the recovery room in good condition. I talked to her , got to keep her overnight, she goes home tomorrow. She may take liquids today and full liquids tomorrow. JOB# [id number] JACQUELINE/ARJUN GRAVES
[2018-07-16] MEDS: MORPHINE IV PRN ×3 (05:07→14:54)
[2018-07-16 08:43] LABS: Hematocrit 31.9 % (30.3-42.9); Hemoglobin 10.5 gm/dl (10.1-14.3); Mean Corpuscular HGB Conc 33 % (30-34); Mean Corpuscular Volume 75 fl (79-97); Platelet Count 259 K/mm3 (140-440); Red Blood Count 4.23 M/mm3 (3.65-5.03); Red Cell Distribution Width 16.7 % (13.2-15.2)
[2018-07-16 08:44] LABS: Mean Corpuscular Hemoglobin 25 pg (28-32)
[2018-07-16] MEDS ORDERED: ROCEPHIN/NS 1 GM/50 ML 1 GM/50 ML BAG IV SCH (10:00)
[2018-07-16] MEDS ORDERED: MILK OF MAGNESIA PO ONE (14:29)
--- NOTE | 2018-07-16 14:29 | Progress Note ---
Subjective Patient Reports: Positive: feels better, still having pain, no flatus, flatus Narrative: doing fine ., afebrile CBC OK drainage , moderate , Irrigation fluid abd soft , indicated to po a right Ov cyst , aspiration , hoe today no driving to call in a week to see me in Off Objective Vital Signs - 12hr 07/16/18 07/16/18 07/16/18 05:07 05:21 05:37 Temperature 98.4 F Pulse Rate 68 Respiratory 17 17 17 Rate Blood Pressure Blood Pressure 106/64 [Right] O2 Sat by Pulse 97 Oximetry 07/16/18 07/16/18 07:19 11:22 Temperature 98.3 F 98.9 F Pulse Rate 61 59 L Respiratory 18 18 Rate Blood Pressure 92/39 111/58 Blood Pressure [Right] O2 Sat by Pulse 96 99 Oximetry - Labs 07/16/18 08:29 07/15/18 04:14
[2018-07-16 16:11] VITALS: BP 104/55
[2018-07-16] MEDS ORDERED: FLEET PR ONE (17:32)
--- NOTE | 2018-07-16 20:34 | Discharge Summary ---
DATE OF DISCHARGE: 07/16/2018 FINAL DIAGNOSES: 1. Appendicitis, pending final pathology report. 2. Right ovarian cyst. HOSPITAL COURSE: This patient was seen in the ER the day of her admission. She complained of severe pain to the right lower quadrant. She felt nauseated. She vomited. She was evaluated by our ER physician. A CAT scan showed evidence of? enlarged appendix; along with that, she has? right ovarian cyst. We had finishing department supervisor to evaluate her. Nothing was seen and I was asked to go ahead and take her appendix out. PHYSICAL EXAMINATION: GENERAL: Showed a well preserved young white female. She is in no distress. HEAD AND NECK: Negative. CHEST: Clear. HEART: Sound normal. ABDOMEN: Protuberant, severe tenderness in the right lower quadrant. The patient was thus taken to the operating room where she underwent laparoscopic appendectomy and laparoscopic aspiration of right ovarian cyst. Postoperative day, she is doing fine. Her white count is normal. She is on full liquids. I asked her to move around, she may go home later this afternoon after having a good bowel movement, to see me in about 2 weeks in my office or 10 days. JOB# [id number] JACQUELINE/ARJUN
== END 2018-07-16 19:10 | disposition home or self-care (01) | DRG 742 ==
LOC: ED 12:21 → 3B-SURG 17:58
PROVIDERS: ADMIT Surgery; ATTEND Surgery
PROC: 0U904ZZ Drainage of Right Ovary, Percutaneous Endoscopic Approach (ICD-10-PCS; principal; 2018-07-15)
PROC: 0DTJ4ZZ Resection of Appendix, Percutaneous Endoscopic Approach (ICD-10-PCS; 2018-07-15)
DX: N83.291 Other ovarian cyst, right side (principal); K35.80 Unspecified acute appendicitis; Z88.1 Allergy status to other antibiotic agents; Z79.899 Other long term (current) drug therapy
CPT/HCPCS: 36415; 74177; 76830; 76856; 80048; 80053; 81001; 81025; 83690; 84702; 85025; 85027; 88112; 88304; J0696; J1170; J1885; J2270; J2405; J2704; J2710; J3010; J7030; Q9967

== ENCOUNTER 2019-01-26 01:06 | Emergency (ER) | payer MEDICAID, SELFPAY ==
[2019-01-26 01:19] VITALS: BP 117/78
[2019-01-26 03:39] LABS: Bacteria,Urine 3+ /HPF (Negative); Bilirubin,Urine NEG (Negative); Blood,Urine NEG (Negative); Color,Urine Yellow (Yellow); Mucus,Urine FEW /HPF; Protein,Urine <15 mg/dL mg/dL (Negative); Urobilinogen,Urine < 2.0 mg/dL (<2.0)
== END 2019-01-26 03:00 | disposition left against medical advice (07) ==
LOC: ED 01:06
DX: R10.9 Unspecified abdominal pain (principal); Z53.21 Procedure and treatment not carried out due to patient leaving prior to being seen by health care provider
CPT/HCPCS: 81001

== ENCOUNTER 2021-05-21 13:09 | Outpatient (CLI) | payer MEDICAID | END 2021-05-21 16:29 | disposition home or self-care (01) | LOC: TRG 13:09 → APU 13:10 | CPT/HCPCS: 59025 ==

== ENCOUNTER 2021-05-22 20:46 | Inpatient (IN) | payer MEDICAID ==
[2021-05-22] MEDS ORDERED: LOPERAMIDE 2 MG CAP PO PRN (21:52)
[2021-05-22] MEDS ORDERED: LIDOCAINE (2%) 20 MG/1 ML VIAL 20 ML MDV INFILTRATI ONE (21:52)
[2021-05-22] MEDS ORDERED: miSOPROStol 200 MCG TAB PR PRN (21:52)
[2021-05-22] MEDS ORDERED: OXYTOCIN 10 UNIT/1 ML INJ IM PRN (21:52)
[2021-05-22] MEDS ORDERED: CARBOPROST TROMETHAMINE 250 MCG/1 ML INJ IM PRN (21:52)
[2021-05-22] MEDS ORDERED: fentaNYL 100 MCG/2 ML INJ IV PRN (21:52)
[2021-05-22] MEDS ORDERED: MINERAL OIL 30 ML ORAL LIQD PO PRN (21:52)
[2021-05-22] MEDS ORDERED: METHYLERGONOVINE MALEATE 0.2 MG/ML VIAL IM PRN (21:52)
[2021-05-22] MEDS ORDERED: BUTORPHANOL 2 MG/1 ML INJ IV PRN (21:52)
[2021-05-22] MEDS ORDERED: ePHEDrine SULFATE 50 MG/1 ML INJ IV PRN (21:52)
[2021-05-22] MEDS ORDERED: TERBUTALINE 1 MG/1 ML INJ SUB-Q PRN (21:52)
[2021-05-22] MEDS ORDERED: OXYTOCIN DRIP 30 UNITS/500 ML BAG IV SCH ×2 (22:00)
[2021-05-22 22:07] LABS: Hematocrit 35.2 % (30.3-42.9); Hemoglobin 12.4 gm/dl (10.1-14.3); Mean Corpuscular HGB Conc 35 % (30-34); Mean Corpuscular Volume 82 fl (79-97); Platelet Count 182 K/mm3 (140-440); Red Blood Count 4.27 M/mm3 (3.65-5.03); Red Cell Distribution Width 14.7 % (13.2-15.2)
[2021-05-22] MEDS: LACTATED RINGERS 1,000 ML IV SCH (22:21)
[2021-05-23] MEDS ORDERED: diphenhydrAMINE 50 MG/ML VIAL IV PRN (02:23)
[2021-05-23] MEDS ORDERED: LACTATED RINGERS 1000 ML IV SOLN IV ONE (02:23)
[2021-05-23] MEDS ORDERED: NALOXONE 2 MG/2 ML INJ IV PRN (02:23)
[2021-05-23] MEDS ORDERED: ePHEDrine SULFATE 50 MG/1 ML INJ IV PRN (02:23)
[2021-05-23] MEDS ORDERED: ONDANSETRON 4 MG/2 ML INJ IV PRN (02:23)
[2021-05-23] MEDS ORDERED: NalbUPHINE 10 MG/1 ML INJ IV PRN (02:23)
--- NOTE | 2021-05-23 02:51 | Anesthesia Consultation ---
Anesthesia Consult and Med Hx Date of service: 05/23/21 - Airway Anesthetic Teeth Evaluation: Good ROM Head & Neck: Adequate Mental/Hyoid Distance: Adequate Mallampati Class: Class II Intubation Access Assessment: Probably Good - Pulmonary Exam CTA: Yes - Cardiac Exam Cardiac Exam: RRR - Pre-Operative Health Status ASA Pre-Surgery Classification: ASA2 Proposed Anesthetic Plan: Epidural - Pulmonary Hx Smoking: No Hx Asthma: No Hx Respiratory Symptoms: No COPD: No Hx Pneumonia: No Hx Sleep Apnea: No - Cardiovascular System Hx Hypertension: No Hx Heart Attack/AMI: No Hx Angina: No - Central Nervous System Hx Seizures: No CVA: No Hx Psychiatric Problems: No - Gastrointestinal Hx Gastroesophageal Reflux Disease: No - Endocrine Hx Renal Disease: No Hx End Stage Renal Disease: No Hx Liver Disease: No Hx Insulin Dependent Diabetes: No Hx Non-Insulin Dependent Diabetes: No Hx Thyroid Disease: No Hx Hypothyroidism: No Hx Hyperthyroidism: No - Hematic Hx Anemia: No Hx Sickle Cell Disease: No - Other Systems Hx Alcohol Use: No Hx Obesity: Yes
--- NOTE | 2021-05-23 02:52 | Progress Note ---
Labor Epidural - Labor Epidural Start Time: 02:30 Stop Time: 02:45 Performed by:: JESSE CAMERON Procedure: Patient is requesting epidural for labor and pain. H&P, labs were reviewed. Patient IDed, H&P reviewed, all questions and concerns were answered, and consent was signed. Timeout was performed at bedside. Patient in sitting position. Sterile prep and drape was performed. 3ml of 1% lidocaine skin wheal at L[3]- L [4]. 18-gauge Tuohy epidural needle was advanced to loss of resistance with air technique 7cm. Negative CSF negative blood. Epidural catheter advanced to [12] centimeters. [negative] Aspiration [negative] test dose. Sterile dressing applied. Patient tolerated procedure.
[2021-05-23] MEDS ORDERED: fentaNYL-BUPIV 2 MCG/ML-0.125% 200 MCG/100 ML BAG EPIDURAL SCH (03:00)
[2021-05-23] MEDS ORDERED: LIDOCAINE (2%) 20 MG/1 ML VIAL 20 ML MDV INFILTRATI ONE (05:51)
[2021-05-23] MEDS: LACTATED RINGERS 1,000 ML IV SCH (05:57)
--- NOTE | 2021-05-23 06:45 | History and Physical Report ---
History of Present Illness Date of examination: 05/23/21 Date of admission: 05/22/21 20:46 Chief complaint: Scheduled IOL secondary to postdates History of present illness: 20yo, @ 41.3 weeks, initiated care with [facility] at 12.4 weeks gestation. 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 She reports to [facility] for scheduled IOL secondary to post-date . Reports +FM. Denies any VB or LOF. Labs: A+, antibody negative; HBsAg negative; HIV negative; RRP negative; GC/Chlamydi a/Tjrich negative; 1 hr gtt - 106; GBS negative. Past History Past Medical History: no pertinent history Past Surgical History: appendectomy (2018) Family/Genetic History: hypertension (MGM) Social history: single, full code. denies: smoking, alcohol abuse, prescription drug abuse, IV drug use - Obstetrical History Expected Date of Delivery: 05/13/21 Actual Gestation: 41 Week(s) 5 Day(s) : 3 Para: 1 Hx # Term Pregnancies: 1 Number of Pregnancies: 0 Spontaneous Abortions: 1 Induced : 0 Number of Living Children: 1 #1 Infant Gender: Female year: 2[age][birth year] Birthweight: 3.77 kg Method of Delivery: Vaginal Gestational age at delivery: 41 Complications: none Medications and Allergies Allergies Allergy/AdvReac Type Severity Reaction Status Date / Time mycin Allergy Mild Rash Uncoded 07/14/18 12:29 Home Medications Medication Instructions Recorded Confirmed Last Taken Type Pnv,Calcium 72/Iron/Folic Acid 1 tab PO DAILY 12/08/17 07/15/18 01/24/18 History [Pnv Plus Multivit Tab] HYDROcodone/APAP 5-325 [[place] 1 each PO Q6HR PRN #30 tablet 01/20/18 07/15/18 01/24/18 Rx 5/325] Ibuprofen [Motrin] 800 mg PO Q8HR PRN #60 tablet 01/20/18 07/15/18 01/24/18 Rx Ondansetron [Zofran Odt] 4 mg PO Q8HR PRN #14 tab.rapdis 03/12/18 07/15/18 01/24/18 Rx traMADoL [Ultram 50 MG tab] 50 mg PO Q4HR PRN #14 tablet 03/12/18 07/15/18 01/24/18 Rx Docusate Sodium [Colace] 100 mg PO BID PRN #30 capsule 05/24/21 Unknown Rx Ferrous Sulfate [Feosol 325 MG tab] 325 mg PO QDAY #30 tablet 05/24/21 Unknown Rx Ibuprofen [Motrin] 600 mg PO Q8H PRN #30 tablet 05/24/21 Unknown Rx oxyCODONE /ACETAMINOPHEN [Percocet 1 tab PO Q6HR PRN #40 tablet 05/24/21 Unkno wn Rx 5/325] Active Meds: Active Medications Butorphanol Tartrate (Butorphanol 2 Mg/1 Ml Inj) 2 mg IV Q2H PRN PRN Reason: Pain , Severe (7-10) Last Admin: 05/22/21 22:25 Dose: 2 mg Documented by: Carboprost Tromethamine (Carboprost Tromethamine 250 Mcg/1 Ml Inj) 250 mcg IM ONCE PRN PRN Reason: Uterine Bleeding Diphenhydramine HCl (Diphenhydramine 50 Mg/Ml Vial) 12.5 mg IV Q2H PRN PRN Reason: Itching Ephedrine Sulfate (Ephedrine Sulfate 50 Mg/1 Ml Inj) 10 mg IV Q2M PRN PRN Reason: Hypotension Last Admin: 05/23/21 03:40 Dose: 10 mg Documented by: Fentanyl (Fentanyl 100 Mcg/2 Ml Inj) 100 mcg IV Q2H PRN PRN Reason: Pain,Severe (7-10) LABOR PAIN Oxytocin/Sodium Chloride (Pitocin/Ns 30 Unit/500ml) 30 units in 500 mls @ 2 mls/hr IV TITR BRISEYDA; Protocol Last Titration: 05/23/21 03:22 Dose: 0 mls/hr, 0 mls/hr Documented by: Lactated Ringer's (Lactated Ringers) 1,000 mls @ 125 mls/hr IV DIRECT BRISEYDA Last Admin: 05/23/21 05:57 Dose: 125 mls/hr Documented by: Oxytocin/Sodium Chloride (Pitocin/Ns 30 Unit/500ml) 30 units in 500 mls @ 40 mls/hr IV TITR BRISEYDA; Protocol Fentanyl/Bupivacaine/Sodium Chlor (Fentanyl-Bupiv 2 Mcg/Ml-0.125%) 200 mcg in 100 mls @ 12 mls/hr EPIDURAL TITR BRISEYDA; Protocol Last Admin: 05/23/21 02:56 Dose: 12 mls/hr Documented by: Loperamide HCl (Loperamide 2 Mg Cap) 2 mg PO ONCE PRN PRN Reason: give with Hemabate Methylergonovine Maleate (Methylergonovine Maleate 0.2 Mg/Ml Vial) 0.2 mg IM ONCE PRN PRN Reason: Uterine Bleeding Mineral Oil (Mineral Oil 30 Ml Oral Liqd) 30 ml PO QHS PRN PRN Reason: Constipation Misoprostol (Misoprostol 200 Mcg Tab) 800 mcg RI ONCE PRN PRN Reason: Uterine Bleeding Nalbuphine HCl (Nalbuphine 10 Mg/1 Ml Inj) 2.5 mg IV Q2H PRN PRN Reason: Itching Naloxone HCl (Naloxone 2 Mg/2 Ml Inj) 0.2 mg IV Q5M PRN PRN Reason: Respiratory sedation Ondansetron HCl (Ondansetron 4 Mg/2 Ml Inj) 4 mg IV Q8H PRN PRN Reason: Nausea And Vomiting Oxytocin (Oxytocin 10 Unit/1 Ml Inj) 10 unit IM ONCE PRN PRN Reason: Uterine Bleeding Terbutaline Sulfate (Terbutaline 1 Mg/1 Ml Inj) 0.25 mg SUB-Q ONCE PRN PRN Reason: Hyperstimulation/Hypertonicity - Vital Signs Vital signs: Vital Signs Pulse BP 85 133/80 05/22/21 21:11 05/22/21 21:11 Temp Pulse Resp BP Pulse Ox 98.7 F 83 16 112/69 99 05/22/21 21:21 05/23/21 06:32 05/22/21 21:21 05/23/21 06:32 05/23/21 06:30 - Physical Exam Breasts: Positive: normal Cardiovascular: Normal S1 Lungs: Positive: Normal air movement Abdomen: Positive: other (gravid) Vagina: Positive: other (light meconium noted) Uterus: Positive: enlarged (S=D) Extremities: Positive: edema Deep Tendon Reflex Grade: Normal +2 - Obstetrical FHR: category 2 Uterine Contraction Monitor Mode: External Cervical Dilatation: 9.5 (vertex) Cervical Effacement Percentage: 90 station: 0 Uterine Contraction Frequency (min): 2 Uterine Contraction Pattern: Regular Uterine Tone Measurement Phase: Resting Uterine Contraction Intensity: Strong/Firm Results Result Diagrams: 05/24/21 00:01 Abnormal lab results 05/22/21 Range/Units 21:30 MCHC 35 H (30-34) % All other labs normal. Assessment and Plan - Patient Problems (1) Post-term Current Visit: No Status: Acute Plan to address problem: Pitocin off secondary to intolerance Epidural off, pt completely numb unable to push Consult with physician about POC for delivery
[2021-05-23] MEDS ORDERED: BICITRA ORAL LIQD 30ML PO NR (07:09)
[2021-05-23] MEDS ORDERED: FAMOTIDINE 20 MG/2 ML INJ IV ONE (07:09)
[2021-05-23] MEDS ORDERED: METOCLOPRAMIDE 10 MG/2 ML INJ IV ONE (07:09)
[2021-05-23] MEDS ORDERED: LACTATED RINGERS 1,000 ML IV SCH (07:15)
[2021-05-23] MEDS ORDERED: ceFAZolin/STERILE WATER 2 GM/20 ML SYRINGE IV ONE (07:35)
[2021-05-23] MEDS ORDERED: SODIUM CHLORIDE 0.9% IRR 1,500 ML BOTTLE IR ONE (07:52)
[2021-05-23] MEDS ORDERED: WATER FOR IRRIG STERILE 1,500 ML BOTTLE IR ONE (07:52)
[2021-05-23] MEDS ORDERED: KETOROLAC 30 MG/1 ML INJ ONE (07:56)
[2021-05-23] MEDS ORDERED: dexAMETHasone 20 MG/5 ML VIAL ONE (07:57)
[2021-05-23] MEDS ORDERED: BUPIVACAINE/PF (0.5%) 5 MG/1 ML 30 ML VIAL INFILTRATI ONE (07:57)
[2021-05-23] MEDS ORDERED: LIDOCAINE 2%/EPINEPHRINE 1:200,000 VIAL (20 ML) INFILTRATI ONE (07:57)
[2021-05-23] MEDS ORDERED: OXYTOCIN DRIP 30 UNITS/500 ML BAG IV SCH ×2 (08:00→12:00)
[2021-05-23] MEDS ORDERED: ceFAZolin/Water 2 GM/20 ML 2 GM/20 ML SYRINGE IV NR (08:00)
[2021-05-23] MEDS ORDERED: LACTATED RINGERS 1,000 ML ONE (08:10)
--- NOTE | 2021-05-23 09:18 | Progress Note ---
Regional Anesthesia Block - Regional Anesthesia Block Start Time: :12 Stop Time: :15 Performed By:: JOHN ALEGRIA Procedure: U/S guided bilateral tap block performed for post-operative pain requested by Dr. Cornelius. H&P & labs reviewed. Procedure explained, questions answered, consent obtained. Patient in the supine position with ekg, blood pressure cuff and pulse ox on and working in PACU. Timeout performed immediately before start of procedure. Probe placed in the mid-axillary line and the external oblique, internal oblique, and transverse abdominus muscles identified. Skin was cleansed with chlorahexadine 0.5% and allowed to dry. A 4" 20 G Eli echogenic needle was advanced in plane until the tip was in the fascial plane between the internal oblique and the transverse abdominus. After negative aspiration 35 ml/side of [30 ml 0.5% Bupivacaine], [10 mg dexamethasone], 50 mcg dexmedetomidine and [40 ml sterile saline] was injected in 5 ml increments with negative aspiration in between. Patient tolerated procedure well.
--- NOTE | 2021-05-23 10:02 | Procedure Note ---
OB Delivery Note - Delivery Date of Delivery: 05/23/21 Surgeon: SHAINA AMEZQUITA Estimated blood loss: other (1317 mL by QBL) - Section Preop diagnosis: arrest of descent, nonreassuring FHR tracing Postop diagnosis: same section procedure: section, primary low transverse Disposition: PACU Complications: intra-op hemorrhage Narrative: Please see operative report - Infant A at 1 minute: 8 at 5 minutes: 9 Gender: Female (3357g (7lb 6oz) @ 0807 am)
--- NOTE | 2021-05-23 10:09 | Operative Report ---
Operative Report Operative Report: Date of procedure: May 23, 2021 Preoperative diagnosis: 1) IUP at 41w3d 2) Arrest of Descent 3) Nonreassuring status 4) Morbid Obesity Postoperative diagnosis: Same 5) Intraoperative Hemorrhage Procedure: Primary low transverse section Surgeon: Filomena Cornelius M.D. Anesthesia: Regional Findings: 1) Viable female , Apgars 8 and 9, weight 3357 g, (7 lb 6 oz) in cephalic presentation. Occiput posterior. Terminal Meconium 2) Extension inferior to the hysterotomy in the lower uterine segment, 4 cm in length 3) Normal-appearing uterus ovaries and tubes Estimated blood loss: 1317 mL IV fluids: 1500 mL Urine output: 200 mL, clear at the end of the procedure Drains: Watson to gravity Specimens: None Complications:None. Counts correct x 3 Disposition: Stable to PACU Indication for procedure: Pt is a 20 year old at 41w3d who was initially admitted for induction of labor. She progressed to complete dilation, but began to have deep variable decelerations to the 70s with each contraction with no further descent of the head. The decision was made to proceed with section. Operation in detail: After the risks, benefits, alternatives and complications were explained to the patient she gave informed consent for the procedure. She was subsequently taken to the operating room where regional anesthesia was noted to be adequate. She was placed in the dorsal supine position with leftward tilt and prepped and draped in a normal sterile fashion. heart tones were noted prior to incision. A timeout was performed. A Pfannenstiel skin incision was made with the knife and carried down to the layer of the fascia with the Bovie. The fascia was incised in the midline and the fascial incision was extended bilaterally with the Bovie. The fascial incision was then stretched. The rectus muscles were then in the midline and partially transected for adequate visualization. The peritoneum was then entered bluntly. The peritoneal incision was extended with good visualization of the bladder. The peritoneal incision was then stretched. An A mikey retractor was placed. The bladder blade was then placed. The vesicouterine peritoneum was grasped with smooth pick ups and incised with Metzenbaum scissors. A bladder flap was then created digitally and the bladder blade was replaced. A transverse incision was made in the lower uterine segment with a knife and extended bilaterally with the bandage scissors. head delivered with difficulty and the assistance of a vaginal hand, followed by shoulders and body. bulb suctioned at delivery. Cord clamped and cut. handed to NICU staff in attendance. The placenta was then delivered manually. The uterus was then exteriorized and cleared of all clots and debris. An extension inferior to the hysterotomy in the lower uterine segment, 4 cm in length. The extension was reappoximated with 0 Monocryl in a running locked fashion. The hysterotomy was then reapproximated with 0 Monocryl in a running locked fashion. A second layer of the same suture was used in imbricating fashion. The hysterotomy was inspected and hemostasis was noted. The gutters were irrigated and cleared of all clots and debris. The hysterotomy was again inspected and noted to be hemostatic. Surgicel was placed over the hysterotomy. The uterus was placed back into the peritoneal cavity. The [place]akan retractor was removed. The peritoneum was reapproximated with 0 Monocryl in a running fashion incorporating the rectus muscles. Surgicel was placed over the rectus muscles. The fascia was reapproximated with 0 Vicryl in a running fashion. The subcutaneous tissue was reapproximated with 3-0 Vicryl in a running fashion. The skin was reapproximated with 4-0 Vicryl in a subcuticular fashion. The incision was then covered with steri strips and a pressure dressing. The procedure was then ended. The patient tolerated the procedure well and was taken to the PACU in stable condition. All instrument, lap, and needle counts were correct 3.
[2021-05-23] MEDS ORDERED: WITCH HAZEL/ GLYCERIN PAD TP PRN (12:00)
[2021-05-23] MEDS ORDERED: NALOXONE 0.4 MG/1 ML INJ IV PRN (12:00)
[2021-05-23] MEDS ORDERED: D5W/LACTATED RINGERS 1,000 ML IV SCH (12:00)
[2021-05-23] MEDS ORDERED: LANOLIN/ZINC/DIMETHICONE (LANSINOH) 7 GM TP PRN (12:00)
[2021-05-23] MEDS ORDERED: SIMETHICONE 80 MG CHEW TAB PO PRN (12:00)
[2021-05-23] MEDS ORDERED: MORPHINE 2 MG/1 ML INJ IV PRN (12:00)
[2021-05-23] MEDS: KETOROLAC 30 MG/1 ML INJ IV SCH ×2 (12:10→18:08)
[2021-05-23] MEDS: MORPHINE 4 MG/1 ML INJ IV PRN (13:47)
[2021-05-23] MEDS: ceFAZolin/NS 1 GM/50 ML 1 GM/50 ML BAG IV SCH (16:57)
[2021-05-23] MEDS ORDERED: MAGNESIUM HYDROXIDE (MOM) ORAL LIQD UDC PO PRN (22:00)
[2021-05-23] MEDS: oxyCODONE /ACETAMINOPHEN 5-325MG TAB PO PRN (22:25)
[2021-05-24 00:35] LABS: Hemoglobin 9.2 gm/dl (10.1-14.3)
[2021-05-24] MEDS: KETOROLAC 30 MG/1 ML INJ IV SCH ×2 (00:45→06:30)
[2021-05-24] MEDS: ceFAZolin/NS 1 GM/50 ML 1 GM/50 ML BAG IV SCH (02:15)
[2021-05-24] MEDS ORDERED: TETANUS,DIPH,PERTUSS(ACELL) VACCINE 0.5 ML SYRINGE IM ONE (08:00)
--- NOTE | 2021-05-24 08:17 | Progress Note ---
Assessment and Plan A: POD# 1 s/p Primary C/S for NRFHTs and Arrest of descent Acute anemia d/t blood loss P:Continue with routine care. Oral Fe supplementation Subjective - Subjective Date of service: 05/24/21 Principal diagnosis: POD#1 s/p Primary C/S for NRFHT's and failure to descend Interval history: POD# 1 Patient is feeling well and has no complaints. She reports no issues with ambulation, +flatus and +bowel movement this morning. Pain is well controlled at this time. Patient reports: voiding normally, pain well controlled, flatus, bowel movement, ambulating normally : doing well Objective - Vital Signs Latest vital signs: Vital Signs Temp Pulse Resp BP BP Pulse Ox 05/24/21 05:42 98.6 F 66 16 114/79 05/24/21 00:30 98.3 F 89 18 112/60 98 05/23/21 21:15 97.7 F 78 18 109/65 96 05/23/21 17:34 97.9 F 89 18 102/55 05/23/21 16:03 91 H 96 05/23/21 11:35 99.7 F H 90 18 112/69 96 05/23/21 10:10 95 H 20 110/65 97 05/23/21 10:00 94 H 20 107/59 97 05/23/21 09:45 91 H 22 103/61 96 05/23/21 09:30 97 H 22 106/50 98 05/23/21 09:15 84 21 108/54 99 05/23/21 09:08 98.3 F 81 22 108/54 99 Intake and Output 05/23/21 05/24/21 05/24/21 23:59 07:59 15:59 Intake Total 470 Output Total 1150 1200 Balance -680 -1200 Intake: IV 50 ANCEF/NS 1 GM/50 ML 1 gm 50 In 50 ml @ 100 mls/hr IV Q8H [facility] Rx#:[id number] Oral 420 Output: Urine 1150 1200 Indwelling Catheter 900 Void 250 1200 Other: Total, Intake Amount 420 Total, Output Amount 250 600 # Voids Void 1 1 - Exam Uterus: Present: firm, fundal height below umbilicus - Labs Labs: Abnormal lab results 05/24/21 Range/Units 00:01 Hgb 9.2 L D (10.1-14.3) gm/dl Hct 27.0 L D (30.3-42.9) %
[2021-05-24] MEDS ORDERED: MEASLES, MUMPS & RUBELLA 12,500 UNIT/0.5 ML VACCINE SUB-Q ONE (11:00)
[2021-05-24] MEDS: MORPHINE 4 MG/1 ML INJ IV PRN ×2 (13:13→17:34)
[2021-05-24] MEDS: IBUPROFEN 800 MG TAB PO PRN (16:07)
--- NOTE | 2021-05-24 20:44 | Post Anesthesia Evaluation ---
- Post Anesthesia Evaluation Patient Participated: Yes Airway Patent: Yes Stable Respiratory Function: Yes Nausea/Vomiting: No Temp > 96.8F: Yes Pain Manageable: Yes Adequeate Hydration: Yes Anesthesia Complications: No Block Receding Appropriately: Yes
[2021-05-24] MEDS: oxyCODONE /ACETAMINOPHEN 5-325MG TAB PO PRN (22:40)
[2021-05-25] MEDS: oxyCODONE /ACETAMINOPHEN 5-325MG TAB PO PRN ×2 (05:07→23:22)
--- NOTE | 2021-05-25 08:18 | Progress Note ---
Assessment and Plan - Patient Problems (1) Status post primary low transverse section Current Visit: Yes Status: Acute Plan to address problem: Continue routine PP orders Keep incision clean and dry, remove dressing today Anticipate d/c tomorrow if stable (2) Anemia Current Visit: Yes Status: Acute Qualifiers: Anemia type: other cause Other causes of anemia: acute posthemorrhagic Qualified Code(s): D62 - Acute posthemorrhagic anemia Plan to address problem: Infed 100 mg IM x 1 dose Increase iron rich foods into diet Subjective - Subjective Date of service: 05/25/21 Principal diagnosis: S/P primary C/S; POD#2 Interval history: 20yo, @ 41.3 weeks, initiated care with [facility] at 12.4 weeks gestation. 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 She reports to [facility] for scheduled IOL secondary to post-date . Reports +FM. Denies any VB or LOF. Labs: A+, antibody negative; HBsAg negative; HIV negative; RRP negative; GC/Chlamydia/Tjrich negative; 1 hr gtt - 106; GBS negative. Patient reports: appetite normal, voiding normally, pain well controlled (with medications, instructed to alternate Percocet and Ibuprofen for better pain control), flatus, ambulating normally, no bowel movement [place]: doing well Objective - Vital Signs Latest vital signs: Vital Signs Temp Pulse Resp BP Pulse Ox 05/25/21 05:07 18 05/24/21 23:38 98.1 F 115 H 16 123/76 97 05/24/21 22:40 18 05/24/21 16:26 98.8 F 115 H 18 121/75 100 05/24/21 08:49 98.1 F 78 18 115/73 100 Intake and Output 05/24/21 05/25/21 05/25/21 23:59 07:59 15:59 Intake Total 1200 480 Output Total 300 Balance 1200 180 Intake: Oral 360 240 Intake, Free Water 840 240 Output: Urine 300 Void 300 Other: Total, Intake Amount 360 240 Total, Output Amount 300 # Voids Void 2 - Exam Breasts: Present: normal Cardiovascular: Present: Regular rate Lungs: Present: Normal air movement Abdomen: Present: soft, tenderness Uterus: Present: firm, fundal height below umbilicus (U-2) Extremities: Present: edema Deep Tendon Reflex Grade: Normal +2 Incision: Present: dressed (no shadow drainage or bleeding noted)
[2021-05-25] MEDS ORDERED: IRON DEXTRAN COMPLEX 100 MG/2 ML INJ IM SCH (09:00)
[2021-05-25] MEDS: IBUPROFEN 800 MG TAB PO PRN (13:37)
--- NOTE | 2021-05-26 07:49 | Discharge Summary ---
Providers - Providers Date of Admission: 05/22/21 20:46 Date of discharge: 05/26/21 Attending physician: NEVILLE CASE 05/23/21 11:42 Consult to Incinerator Attendant [CONS] Routine Reason For Exam: Primary care physician: NEVILLE CASE Hospitalization Reason for admission: induction of labor Delivery: Procedure: primary low transverse Episiotomy: none Laceration: none Incision: dry, intact (steri-strips clean and dry) Other procedures: none complications: none Discharge diagnosis: IUP at term delivered [place] baby: female Hospital course: 20yo, @ 41.3 weeks, initiated care with [facility] at 12.4 weeks gestation. 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 She reports to [facility] for scheduled IOL secondary to post-date . Reports +FM. Denies any VB or LOF. Labs: A+, antibody negative; HBsAg negative; HIV negative; RRP negative; GC/Chlamydia/Tjrich negative; 1 hr gtt - 106; GBS negative She progressed to complete dilation, but began to have deep variable decelerations to the 70s with each contraction with no further descent of the head. The decision was made to proceed with section. Condition at discharge: Stable Disposition: DC-01 TO HOME OR SELFCARE - Discharge Diagnoses (1) Status post primary low transverse section Status: Acute (2) Anemia Status: Acute Qualifiers: Anemia type: other cause Other causes of anemia: acute posthemorrhagic Qualified Code(s): D62 - Acute posthemorrhagic anemia Plan - Discharge Medications Prescriptions: Docusate Sodium [Colace] 100 mg PO BID PRN #30 capsule PRN Reason: Constipation Ferrous Sulfate [Feosol 325 MG tab] 325 mg PO QDAY #30 tablet Ibuprofen [Motrin] 600 mg PO Q8H PRN #30 tablet PRN Reason: Pain oxyCODONE /ACETAMINOPHEN [Percocet 5/325] 1 tab PO Q6HR PRN #40 tablet PRN Reason: Pain - Provider Discharge Summary Activity: routine, no sex for 6 weeks, no heavy lifting 4 weeks, no strenuous exercise Diet: other (Iron rich diet) Instructions: routine Additional instructions: [] Smoking cessation referral if applicable(refer to patient education folder for contact #) [] Refer to [facility] Booklet Call your doctor immediately for: * Fever > 100.5 * Heavy vaginal bleeding ( >1 pad per hour) * Severe persistent headache * Shortness of breath * Reddened, hot, painful area to leg or breast * Drainage or odor from incision. * Keep incision clean and dry at all times and follow doctor's instructions regarding bathing/showering * Follow- up at office in 1 week for incision check - Follow up plan Follow up: NEVILLE CASE MD [Primary Care Provider] - 7 Days
[2021-05-26] MEDS: IBUPROFEN 800 MG TAB PO PRN (11:14)
[2021-05-26 14:40] VITALS: BP 132/80
== END 2021-05-26 15:10 | disposition home or self-care (01) | DRG 765 ==
LOC: LD 20:46 → OB 05-23 11:11
PROVIDERS: ADMIT Obstetrics & Gynecology; ATTEND Obstetrics & Gynecology
PROC: 10D00Z1 Extraction of Products of Conception, Low, Open Approach (ICD-10-PCS; principal; 2021-05-23)
PROC: 3E0234Z Introduction of Serum, Toxoid and Vaccine into Muscle, Percutaneous Approach (ICD-10-PCS; 2021-05-24)
PROC: 3E0134Z Introduction of Serum, Toxoid and Vaccine into Subcutaneous Tissue, Percutaneous Approach (ICD-10-PCS; 2021-05-24)
DX: O76 Abnormality in fetal heart rate and rhythm complicating labor and delivery (principal); O98.52 Other viral diseases complicating childbirth; D62 Acute posthemorrhagic anemia; O48.0 Post-term pregnancy; O99.02 Anemia complicating childbirth; D57.3 Sickle-cell trait; B00.9 Herpesviral infection, unspecified; Z20.822 Contact with and (suspected) exposure to COVID-19; O62.1 Secondary uterine inertia; O99.214 Obesity complicating childbirth; E66.01 Morbid (severe) obesity due to excess calories; Z3A.41 41 weeks gestation of pregnancy; Z37.0 Single live birth; Z23 Encounter for immunization; Z90.49 Acquired absence of other specified parts of digestive tract; Z82.49 Family history of ischemic heart disease and other diseases of the circulatory system; Z79.899 Other long term (current) drug therapy
CPT/HCPCS: 36415; 59025; 85014; 85018; 85027; 86592; 86850; 86900; 86901; 96360; 99211; G0378; G0463; J0595; J0690; J1100; J1750; J1885; J2270; J2590; J2765; J3490; J7120; J7121; U0003